=== PATIENT | female | born 1985 | race Two or more races ===

== ENCOUNTER → 2025-02-20 | Outpatient (CLI) | payer MEDICAID, SELFPAY ==
--- NOTE | 2025-02-20 15:13 | XR_ITS ---
Examination: Sacrum and coccyx 3 views TECHNIQUE: AP, inclined AP, lateral sacrum and coccyx 3 views Date and time: February 20, 2025 1519 hours INDICATIONS: Patient fell 3 days ago with injury to the sacrum, sacral pain. FINDINGS: Satisfactory alignment sacrococcygeal segments No fracture IMPRESSION: Negative for fracture
== END | disposition home or self-care (01) ==
LOC: CDIM 14:37
DX: S39.92XA Unspecified injury of lower back, initial encounter (principal); W19.XXXA Unspecified fall, initial encounter
CPT/HCPCS: 72220